=== PATIENT | female | born 1965 | race Caucasian/White ===

== ENCOUNTER 2017-09-06 06:32 | Emergency (ER) | payer BC ==
[2017-09-06 07:18] VITALS: O2SAT 97
--- NOTE | 2017-09-06 07:39 | ERPHSYRPT ---
- History of Present Illness Time Seen by Provider: 09/06/17 07:31 Source: patient Exam Limitations: no limitations Patient Subjective Stated Complaint: nausea without vomiting since thursday. intermittent fever since thursday. abdomen soft + BS x 4 dizzy yesterday and fell at home. watery diarrhea. Triage Nursing Assessment: nausea without vomiting since thursday. intermittent fever since thursday. abdomen soft + BS x 4 dizzy yesterday and fell at home. watery diarrhea. Physician History: Patient is a 51-year-old female complaining that she has been nauseated and had diarrhea with intermittent fever for 5 days. Her abdomen is been cramping. She has not vomited but has spit up "phlegm". Although she says she has not vomited, she also states she "can't keep anything down". The diarrhea is watery. Yesterday she was dizzy. She jumped up out of bed, came dizzy, and slipped and fell down. She said it didn't really hurt much. Today she says "I can't take it anymore". Her past medical history is significant for gastric bypass, GERD, and hypertension. Timing/Duration: day(s) (5) Severity: moderate Modifying Factors: Improves With: nothing Associated Symptoms: nausea, abdominal pain (cramping), No vomiting Allergies/Adverse Reactions: No Known Drug Allergies Allergy (Unverified 09/06/17 07:18) - Review of Systems Constitutional: No Fever, No Chills Eyes: No Symptoms Ears, Nose, & Throat: No Symptoms Respiratory: No Cough, No Dyspnea Cardiac: No Chest Pain, No Edema, No Syncope Abdominal/Gastrointestinal: Abdominal Pain, Nausea, Diarrhea, No Vomiting Genitourinary Symptoms: No Dysuria Musculoskeletal: No Back Pain, No Neck Pain Skin: No Rash Neurological: Dizziness Psychological: No Symptoms Endocrine: No Symptoms Hematologic/Lymphatic: No Symptoms Immunological/Allergic: No Symptoms All Other Systems: Reviewed and Negative - Past Medical History Pertinent Past Medical History: Yes - Past Surgical History Past Surgical History: Yes - Social History Smoking Status: Never smoker Exposure to second hand smoke: No Drug Use: none Patient Lives Alone: No - Female History Hx Now: No - Nursing Vital Signs Nursing Vital Signs: Initial Vital Signs Temperature 98.5 F 09/06/17 07:03 Pulse Rate 102 H 09/06/17 07:03 Respiratory Rate 20 09/06/17 07:03 Blood Pressure 157/118 09/06/17 07:03 O2 Sat by Pulse Oximetry 97 09/06/17 07:03 Pain Scale Pain Intensity 3 - Physical Exam General Appearance: no apparent distress, alert Eye Exam: PERRL/EOMI, eyes nml inspection Ears, Nose, Throat Exam: normal ENT inspection, TMs normal, pharynx normal, moist mucous membranes Neck Exam: normal inspection, non-tender, supple, full range of motion Respiratory Exam: normal breath sounds, lungs clear, No respiratory distress Cardiovascular Exam: regular rate/rhythm, normal heart sounds, normal peripheral pulses Gastrointestinal/Abdomen Exam: soft, normal bowel sounds, No tenderness Pelvic Exam: not done Rectal Exam: not done Back Exam: normal inspection, normal range of motion, No CVA tenderness, No vertebral tenderness Extremity Exam: normal inspection, normal range of motion, pelvis stable Neurologic Exam: alert, oriented x 3, cooperative, normal mood/affect, nml cerebellar function, nml station & gait, sensation nml, No motor deficits Skin Exam: normal color, warm, dry, No rash Lymphatic Exam: No adenopathy SpO2 Interpretation: normal SpO2: 97 Oxygen Delivery: Room Air - Radiology Exams Abdomen X-ray Interpretation: Interpreted by me, Negative Ordered Tests: Active Orders 24 hr Category Date Time Status IV Insertion STAT Care 09/06/17 07:44 Active KUB Stat Exams 09/06/17 07:45 Completed CBC W DIFF Stat Lab 09/06/17 07:56 Completed CMP Stat Lab 09/06/17 07:56 Completed Potassium (Lab Test) [Potassium] Stat Lab 09/06/17 11:11 Completed Medication Summary Discontinued Medications Generic Name Dose Route Start Last Admin Trade Name Freq PRN Reason Stop Dose Admin Famotidine 20 mg 09/06/17 09:50 09/06/17 09:52 Pepcid 20 Mg Vial IV 09/06/17 09:51 20 mg STAT ONE Administration Famotidine Confirm 09/06/17 09:52 Pepcid 20 Mg Vial Administered 09/06/17 09:53 Dose 20 mg IV .STK-MED ONE Sodium Chloride 1,000 mls @ 999 mls/hr 09/06/17 07:44 09/06/17 07:59 Sodium Chloride 0.9% 1000 Ml IV 09/06/17 08:44 999 mls/hr .Q1H1M STA Administration Sodium Chloride Confirm 09/06/17 07:57 Sodium Chloride 0.9% 1000 Ml Administered 09/06/17 07:58 Dose 1,000 mls @ ud .ROUTE .STK-MED ONE Potassium Chloride 20 meq in 100 mls @ 50 mls/hr 09/06/17 08:41 09/06/17 08: 46 Potassium Chloride 20 Meq In Water 100ml IV 09/06/17 10:40 50 mls/hr STAT ONE Administration Potassium Chloride Confirm 09/06/17 08:45 Potassium Chloride 20 Meq In Water 100ml Administered 09/06/17 08:46 Dose 100 mls @ ud IV .STK-MED ONE Ondansetron HCl 4 mg 09/06/17 07:44 09/06/17 07:59 Zofran 4 Mg/2 Ml Vial IV 09/06/17 07:45 4 mg STAT ONE Administration Ondansetron HCl Confirm 09/06/17 07:57 Zofran 4 Mg/2 Ml Vial Administered 09/06/17 07:58 Dose 4 mg .ROUTE .STK-MED ONE Potassium Chloride 40 meq 09/06/17 08:41 09/06/17 08:45 Klor Con 10 Meq PO 09/06/17 08:42 40 meq STAT ONE Administration Potassium Chloride Confirm 09/06/17 08:45 Klor Con 10 Meq Administered 09/06/17 08:46 Dose 40 meq PO .STK-MED ONE Lab/Rad Data: Laboratory Result Diagrams 09/06/17 07:56 09/06/17 11:11 Laboratory Results 09/06/17 09/06/17 09/06/17 Range/Units 11:11 07:56 07:56 WBC 6.6 (4.0-10.5) K/mm3 RBC 4.51 (4.1-5.4) M/mm3 Hgb 10.5 L (12.0-16.0) gm/dl Hct 34.5 L (35-47) % MCV 76.5 L (78-100) fl MCH 23.2 L (26-32) pg MCHC 30.4 L (32-36) g/dl RDW 17.0 H (11.5-14.0) % Plt Count 318 (150-450) K/mm3 MPV 10.5 H (6-9.5) fl Gran % 75.2 H (36.0-66.0) % Lymphocytes % 11.8 L (24.0-44.0) % Monocytes % 12.4 H (0.0-12.0) % Eosinophils % 0.3 (0.00-5.0) % Basophils % 0.3 (0.0-0.4) % Basophils # 0.02 (0-0.4) Sodium 137 (136-145) mEq/L Potassium 3.8 3.0 L* (3.5-5.1) mEq/L Chloride 101 (98-107) mEq/L Carbon Dioxide 20.4 L (21-32) mEq/L Anion Gap 18.6 H (5-15) MEQ/L BUN 14 (9-20) mg/dL Creatinine 0.73 (0.55-1.30) mg/dl Estimated GFR > 60 ML/MIN Glucose 109 (70-110) MG/DL Calcium 8.6 (8.5-10.1) mg/dL Total Bilirubin 0.30 (0.2-1.0) mg/dL AST 34 (15-37) U/L ALT 41 (12-78) U/L Alkaline Phosphatase 92 (46-116) U/L Serum Total Protein 7.0 (6.4-8.2) gm/dL Albumin 3.0 L (3.4-5.0) g/dL - Progress Progress: improved Counseled pt/family regarding: lab results, diagnosis, need for follow-up, rad results - Departure Time of Disposition: 11:49 Departure Disposition: Home Clinical Impression: Gastroenteritis, Hypokalemia Condition: Stable Critical Care Time: No Referrals: [facility] [LOCATION] - Additional Instructions: You have gastroenteritis. Your serum potassium level was also low. You were given potassium 20 mEq, Zofran 4 mg, Pepcid 20 mg, and fluids by IV. You were given potassium 40 mEq orally. Take Zofran 4 mg ODT every 6 hours as needed. Stay well hydrated. Follow-up in one to 2 days if no better. Prescriptions: Ondansetron [Zofran Odt] 4 mg PO Q6H PRN PRN #10 tab.rapdis PRN Reason: Nausea
[2017-09-06] MEDS ORDERED: Sodium Chloride 0.9% 1000 ML 1,000 ML IV STA (07:44)
[2017-09-06] MEDS ORDERED: Zofran 4 MG/2 ML VIAL IV ONE (07:44)
[2017-09-06] MEDS ORDERED: Zofran 4 MG/2 ML VIAL ONE (07:57)
[2017-09-06] MEDS ORDERED: Sodium Chloride 0.9% 1000 ML 1,000 ML ONE (07:57)
[2017-09-06 07:59] LABS: BASOPHIL % 0.3 % (0.0-0.4); Basophil (Absolute #) 0.02 (0-0.4); Eosinophil % 0.3 % (0.00-5.0); Eosinophil (Absolute #) 0.02 (0-0.5); Granulocyte Absolute (ANC) 4.99 (1.4-6.9); Granulocytes % 75.2 % (36.0-66.0); Hematocrit 34.5 % (35-47); Hemoglobin 10.5 gm/dl (12.0-16.0); Lymphocyte (Absolute #) 0.78 (1.0-4.6); Lymphocytes % 11.8 % (24.0-44.0); Mean Cell Volume 76.5 fl (78-100); Mean Corpuscular Hgb Concent. 30.4 g/dl (32-36); Mean Platelet Volume 10.5 fl (6-9.5); Monocyte (Absolute #) 0.82 (0.0-1.3); Monocytes % 12.4 % (0.0-12.0); Platelet Count 318 K/mm3 (150-450); Red Blood Count 4.51 M/mm3 (4.1-5.4); White Blood Count 6.6 K/mm3 (4.0-10.5)
[2017-09-06 08:00] LABS: Mean Corpuscular Hemoglobin 23.2 pg (26-32)
[2017-09-06 08:17] LABS: ALKALINE PHOSPHATASE 92 U/L (46-116); ANION GAP 18.6 MEQ/L (5-15); BLOOD UREA NITROGEN 14 mg/dL (9-20); CHLORIDE 101 mEq/L (98-107); Calcium 8.6 mg/dL (8.5-10.1); Carbon Dioxide 20.4 mEq/L (21-32); Creatinine 1 0.73 mg/dl (0.55-1.30); EST GLOMERULAR FILTRATION RATE > 60 ML/MIN; Glucose 109 MG/DL (70-110); SGOT/AST 34 U/L (15-37); SGPT/ALT 41 U/L (12-78); SODIUM 137 mEq/L (136-145)
[2017-09-06] MEDS ORDERED: POTASSIUM CHLORIDE 20 mEq IN WATER 100ML 20 MEQ/100 ML BAG IV ONE (08:41)
[2017-09-06] MEDS ORDERED: Klor Con 10 MEQ PO ONE ×2 (08:41→08:45)
[2017-09-06] MEDS ORDERED: POTASSIUM CHLORIDE 20 mEq IN WATER 100ML 100 ML IV ONE (08:45)
[2017-09-06] MEDS ORDERED: Pepcid 20 MG VIAL IV ONE ×2 (09:50→09:52)
--- NOTE | 2017-09-06 10:44 | XRAY ---
Indication: Abdominal pain, nausea, diarrhea. Comparison: August 23, 2006. KUB again demonstrates previous gastric bypass surgery with interval cholecystectomy. Bowel gas pattern nonspecific and nonobstructed. Solid organs and osseous structures unremarkable. Impression: Negative KUB.
[2017-09-06 12:16] VITALS: BP 131/87; PULSE 88
== END 2017-09-06 12:00 | disposition home or self-care (01) ==
LOC: ED 06:32
DX: K52.9 Noninfective gastroenteritis and colitis, unspecified (principal); E87.6 Hypokalemia; R11.0 Nausea; I10 Essential (primary) hypertension; R10.9 Unspecified abdominal pain; R19.7 Diarrhea, unspecified
CPT/HCPCS: 36000; 36415; 74018; 80053; 84132; 85025; 96360; 96365; 96374; 96375; 99284; J2405; J3480; A9270-GY

== ENCOUNTER 2018-01-29 06:08 | Day surgery (SDC) | payer BC ==
[~2018-01-29 06:08] MED LIST: Lactated Ringers 1,000 ML IV SCH
[2018-01-29] MEDS ORDERED: DIPRIVAN 200 MG/20 ML IV ONE (06:09)
--- NOTE | 2018-01-29 08:31 | OP ---
SURGERY DATE/TIME: 01/29/2018 0729 PREOPERATIVE DIAGNOSIS: Screening exam. POSTOPERATIVE DIAGNOSIS: Normal colon. PROCEDURE: Colonoscopy. SURGEON: Dr. Hurst. ANESTHESIA: MAC. Medications given by anesthesia department. HISTORY: The patient is a 52 year-old white female presenting now for her first screening colonoscopy. She was appraised of the risks of the procedure including the risk of perforation, phlebitis, untoward reaction to medication, bleeding and missed lesions. The patient verbalized her understanding and desired to have the procedure performed. DESCRIPTION OF PROCEDURE: The patient was given the medications by the anesthesia department. She had continuous pulse oximetry, ECG monitoring, intermittent blood pressure monitoring and tidal CO2 monitoring during the examination. She was placed in the left lateral decubitus position. A digital rectal examination was performed and revealed normal anal sphincter tone and no masses. The flexible Olympus pediatric colonoscope was used to intubate the rectum. A view of the colon was developed sequentially to the cecum. Upon insertion and withdrawal, including a retroflex view in the rectum, no mucosal lesions were encountered. The scope was removed from the patient who tolerated the procedure well and was sent back to OP recovery in good condition. The prep was noted to be fair.
[2018-01-29 08:43] VITALS: BP 146/95; PULSE 68; O2SAT 97
== END 2018-01-29 08:40 | disposition home or self-care (01) ==
LOC: SDC 06:08
PROVIDERS: ATTEND Family Medicine
DX: Z12.11 Encounter for screening for malignant neoplasm of colon (principal); K21.9 Gastro-esophageal reflux disease without esophagitis
CPT/HCPCS: J2704

== ENCOUNTER 2019-04-03 10:51 | Emergency (ER) | payer BC, OTHER ==
[2019-04-03] MEDS ORDERED: TORAdol 30 mg Injection IM ONE (11:07)
[2019-04-03] MEDS ORDERED: MORPHINE SULFATE 4 MG INJ IM ONE (11:07)
--- NOTE | 2019-04-03 11:18 | ERPHSYRPT ---
- History of Present Illness Time Seen by Provider: 04/03/19 11:00 Source: patient Exam Limitations: no limitations Physician History: Left lateral ankle pain after injury 7 hours prior to coming into the emergency department. Method of Injury: fell, twisted (inversion injury) Occurred: this morning (0400 on 04/03/2019) Quality: constant, aching, sharpness, throbbing Severity of Pain-Max: severe Severity of Pain-Current: severe Lower Extremities Pain: ankle: left Modifying Factors: Improves With: immobilization (helps), movement (worsens), rest (helps), other (unable to weight bear without significant pain) Associated Symptoms: unable to bear weight, No dizzy, No fainted, No seizure, No snapping sensation, No popping sensation Allergies/Adverse Reactions: No Known Drug Allergies Allergy (Verified 04/03/19 11:13) Home Medications: Omeprazole [Prilosec] 30 mg PO DAILY 01/21/18 [History] ALPRAZolam [Alprazolam] 0.25 mg PO UD 04/03/19 [History] Losartan Potassium 50 mg [Cozaar 50 MG] 50 mg PO DAILY 04/03/19 [History] Venlafaxine HCl [Effexor] 100 mg PO DAILY 04/03/19 [History] - Review of Systems Constitutional: No Fever, No Chills Eyes: No Eye Pain, No Vision Changes Ears, Nose, & Throat: No Nose Pain, No Epistaxis, No Loose Teeth Respiratory: No Cough, No Dyspnea Cardiac: No Chest Pain, No Edema, No Syncope Abdominal/Gastrointestinal: No Abdominal Pain, No Nausea, No Vomiting, No Diarrhea Genitourinary Symptoms: No Dysuria Musculoskeletal: Joint Pain (left ankle), No Back Pain, No Neck Pain Skin: No Rash Neurological: No Dizziness, No Focal Weakness, No Parasthesia, No Sensory Changes, No Tremors Psychological: No Symptoms Endocrine: No Symptoms Hematologic/Lymphatic: No Easy Bleeding, No Easy Bruising All Other Systems: Reviewed and Negative - Past Medical History Pertinent Past Medical History: Yes Neurological History: No Pertinent History ENT History: No Pertinent History Cardiac History: Hypertension Respiratory History: No Pertinent History Endocrine Medical History: No Pertinent History Musculoskeletal History: Arthritis GI Medical History: Ulcer History: No Pertinent History Psycho-Social History: No Pertinent History Female Reproductive Disorders: No Pertinent History - Past Surgical History Past Surgical History: Yes Neuro Surgical History: No Pertinent History Cardiac: No Pertinent History Respiratory: No Pertinent History Gastrointestinal: No Pertinent History Genitourinary: No Pertinent History Musculoskeletal: Other Female Surgical History: No Pertinent History Other Surgical History: states "surgery on left arm,skin cancer" - Social History Smoking Status: Never smoker Exposure to second hand smoke: No Drug Use: none Patient Lives Alone: No - Nursing Vital Signs Nursing Vital Signs: Initial Vital Signs Temperature 99.4 F 04/03/19 11:07 Pulse Rate 95 H 04/03/19 11:07 Respiratory Rate 16 04/03/19 11:07 Blood Pressure 155/103 04/03/19 11:07 O2 Sat by Pulse Oximetry 97 04/03/19 11:07 Pain Scale Pain Intensity 6 - Physical Exam General Appearance: alert Eyes, Ears, Nose, Throat Exam: moist mucous membranes Neck Exam: non-tender, supple Cardiovascular/Respiratory Exam: chest non-tender, normal breath sounds, regular rate/rhythm, no respiratory distress Gastrointestinal/Abdominal Exam: non-tender, soft, No guarding Back Exam: normal inspection, No CVA tenderness, No vertebral tenderness Hips Exam: bilateral: non-tender, normal inspection, normal range of motion, no evidence of injury Legs Exam: bilateral leg: non-tender, normal inspection, normal range of motion , no evidence of injury Knees Exam: bilateral knee: non-tender, normal inspection, normal range of motion, no evidence of injury Ankle Exam: right ankle: non-tender, normal range of motion, left ankle: bone tenderness, limited range of motion, pain, soft tissue tenderness, swelling, bilateral ankle: normal inspection Foot Exam: bilateral foot: non-tender, normal inspection, normal range of motion , no evidence of injury DTR - Lower Extremities Exam: ankle (R): 2+, ankle (L): 2+ Neuro/Tendon Exam: normal sensation, normal motor functions Mental Status Exam: alert, oriented x 3, cooperative Skin Exam: normal color, warm, dry, No cyanosis SpO2 Interpretation: normal O2 Delivery: Room Air - Course Nursing assessment & vital signs reviewed: Yes - Radiology Exams Left Ankle X-ray Interpretation: Interpreted by me, Reviewed by me, No Fracture, Nml Alignment, Other (lateral soft tissue swelling) Ordered Tests: Active Orders 24 hr Category Date Time Status Richar Bandage Application -[facility] STAT Care 04/03/19 12:45 Ordered Splint STAT Care 04/03/19 12:45 Ordered ANKLE (3 VIEWS) Stat Exams 04/03/19 12:42 Taken Medication Summary Discontinued Medications Generic Name Dose Route Start Last Admin Trade Name Yenny PRN Reason Stop Dose Admin Ketorolac Tromethamine 60 mg 04/03/19 11:07 04/03/19 11:46 Toradol 30 Mg Injection IM 04/03/19 11:08 60 mg STAT ONE Administration Ketorolac Tromethamine Confirm 04/03/19 11:42 Toradol 30 Mg Injection Administered 04/03/19 11:43 Dose 60 mg .ROUTE .STK-MED ONE Morphine Sulfate 4 mg 04/03/19 11:07 04/03/19 11:46 Morphine Sulfate 4 Mg Inj IM 04/03/19 11:08 4 mg STAT ONE Administration Morphine Sulfate Confirm 04/03/19 11:42 Morphine Sulfate 4 Mg Inj Administered 04/03/19 11:43 Dose 4 mg .ROUTE .STK-MED ONE - Progress Progress: improved Progress Note: 04/03/19 12:46 pain has improved after IM injections of Toradol and morphine. Patient had an Richar wrap applied to the left ankle for compression and air cast splint for immobilization. The patient was neurovascularly intact after placement. Counseled pt/family regarding: diagnosis, need for follow-up, rad results - Departure Departure Disposition: Home Clinical Impression: Left ankle sprain Qualifiers: Encounter type: initial encounter Involved ligament of ankle: unspecified ligament Qualified Code(s): S93.402A - Sprain of unspecified ligament of left ankle, initial encounter Hypertension Qualifiers: Hypertension type: essential hypertension Qualified Code(s): I10 - Essential ( primary) hypertension Condition: Good Critical Care Time: No Referrals: ALLISON GILBERT [Primary Care Provider] - Follow Up with PCP/3 days Instructions: Foot Sprain (DC), Ankle Sprain (DC), High Blood Pressure (DC) Additional Instructions: You have been treated for an ankle sprain as the initial interpretation of the x -ray films by the emergency department physician was negative for any fractures or dislocations. Continue to rest as needed, ice for 15-20 minutes on, 40-45 minutes off, compression with Richar wrap and elevation over the next 3 days. We will notify you if the radiologist has interpretation that change your management on 04/04/2019. rreturn E. medially back to the emergency department if any worse pain, discoloration or foot, loss sensation, loss of strength, or any other concerning signs or symptoms that was not present at today's emergency department visit for immediate reevaluation in the emergency department. Forms: Work/School Release Form Prescriptions: Etodolac 400 mg [Lodine 400 mg] 400 mg PO BID PRN PRN #20 tablet PRN Reason: Pain
[2019-04-03] MEDS ORDERED: MORPHINE SULFATE 4 MG INJ ONE (11:42)
[2019-04-03] MEDS ORDERED: TORAdol 30 mg Injection ONE (11:42)
[2019-04-03 13:04] VITALS: BP 141/100; PULSE 79; O2SAT 96
--- NOTE | 2019-04-03 20:43 | XRAY ---
Indication: Pain after injury. Comparison: None 3 views of the left ankle demonstrates nondisplaced lateral malleolus and 4th metatarsal shaft fractures with soft tissue swelling. No other bony, articular, or soft tissue abnormalities. Comment: Fractures not reported by interpreting ER clinician. Telephone report given to Dr. Montano in the ER at 2036 hrs. on April 03, 2019.
== END 2019-04-03 13:30 | disposition home or self-care (01) ==
LOC: ED 10:51
DX: S93.402A Sprain of unspecified ligament of left ankle, initial encounter (principal); X50.1XXA Overexertion from prolonged static or awkward postures, initial encounter; Y99.9 Unspecified external cause status
CPT/HCPCS: 73610; 96372; 99284; J1885; J2270